=== PATIENT | female | born 1980 | race Caucasian/White ===

== ENCOUNTER 2016-08-05 12:39 | Emergency (ER) | payer SELFPAY ==
[~2016-08-05] VITALS: Ht 167.6 cm; Wt 60.0 kg
[2016-08-05] MEDS ORDERED: SODIUM CHLORIDE 0.9% 1,000 ML IV ONE (12:53)
[2016-08-05 13:17] VITALS: BP 115/54
== END 2016-08-05 13:40 | disposition left against medical advice (07) ==
LOC: ER 12:51
DX: T40.1X1A Poisoning by heroin, accidental (unintentional), initial encounter (principal); F11.10 Opioid abuse, uncomplicated
CPT/HCPCS: 99283; J7030